=== PATIENT | female | born 1955 | race Caucasian/White ===

== ENCOUNTER 2016-12-17 14:07 | Emergency (ER) | payer SELFPAY ==
--- NOTE | 2016-12-18 11:47 | CR ---
INDICATION: Fall, pain. LEFT KNEE: Three views of the left knee revealed prominence at the suprapatellar bursa, raising question of a knee joint effusion. A moderate sized spur is noted off the cranial anterior aspect of the patella. Minimal hypertrophic change is noted at the medial intercondylar spine. Femorotibial and patellofemoral joint space appeared to be grossly well maintained. A definite fracture or dislocation was not identified. IMPRESSION: 1. No acute fracture or dislocation. 2. Possible minimal joint effusion at the knee. 3. Spur off the patella. 4. Minimal osteoarthritis. MTDD
--- NOTE | 2016-12-18 15:57 | ER ---
DATE SEEN: 12/17/2016 Patient was seen at 1430 hours. HISTORY OF PRESENT ILLNESS: The patient was doing cleaning. She was stepping backwards. She did not realize she was at the edge of the stairs, when her foot went down 2 steps and her knee struck the bottom step, causing pain in her left knee. No previous history of knee injury. Pain she relates is 9/10. She noted she had knee discomfort when she was playing basketball in high school. PAST MEDICAL HISTORY: Negative except for COPD. No diabetes, heart disease, or high blood pressure. MEDICATIONS: 1. Ranitidine. 2. Citalopram - she has had depression. ALLERGIES: Allergic to codeine. PHYSICAL EXAMINATION: VITAL SIGNS: Blood pressure 139/67, heart rate 64, respirations 18, oxygen saturation 98%, and temperature is 36.5 degrees centigrade. GENERAL: Alert woman, in mild distress. Pleasant, interactive. HEENT: Without abnormality. LUNGS: Clear. HEART: Without murmur. ABDOMEN: Soft. No guarding. No abdominal discomfort. EXTREMITIES: Left leg, she has pain with palpation of the lateral joint line, lateral collateral ligaments, and also lateral retinacular ligament. There is no effusion noted. No patellar tenderness. There is mild patellar crepitus with mild patellar grind. She can extend and flex her knee appropriately. Stanislaw maneuver is negative. The left collateral ligament strain is mildly uncomfortable. DIAGNOSTIC DATA: X-ray is negative. No evidence for fracture. She has no effusion. ASSESSMENT: She has a fabella on the lateral view posterior to the condyles. PLAN: Treat with ibuprofen and Tylenol. She does not want narcotics. Tylenol 1000 and 600 ibuprofen take together every 6 hours. Follow up with doctor in 4 to 5 days. May return to work. Decrease her work load by 30% first day and then resume full work load after 24 hours. /[id number] /MODL
== END 2016-12-17 15:38 | disposition home or self-care (01) ==
LOC: FB.ED 14:07
DX: M23.8X2 Other internal derangements of left knee (principal); F32.9 Major depressive disorder, single episode, unspecified
CPT/HCPCS: 73562-LT; 99283